=== PATIENT | female | born 1975 | race Hispanic/Latino ===

== ENCOUNTER 2016-07-19 11:31 | Emergency (ER) | payer OTHER ==
[2016-07-19 11:32] VITALS: BMI 33.3
--- NOTE | 2016-07-19 12:53 | C.PDOC ---
History Of Present Illness 41 year old female presents to the ED with complaints of swollen and painful right middle finger area. Patient describes feeling a prick to the right middle finger area while at work yesterday. Patient denies vomiting, nausea, and diarrhea. Chief Complaint (Nursing): Abnormal Skin Integrity History Per: Patient History/Exam Limitations: no limitations Onset/Duration Of Symptoms: Hrs Current Symptoms Are (Timing): Still Present Quality Of Symptoms: Painful, Swollen Past Medical History Reviewed: Historical Data, Nursing Documentation, Vital Signs Vital Signs: Last Vital Signs Temp 98.2 F 07/19/16 14:10 Pulse 72 07/19/16 14:10 Resp 16 07/19/16 14:10 BP 121/81 07/19/16 14:10 Pulse Ox 99 07/19/16 23:59 Family History: States: Unknown Family Hx - Social History Hx Tobacco Use: No Hx Alcohol Use: Yes Hx Substance Use: No - Immunization History Hx Influenza Vaccination: No Hx Pneumococcal Vaccination: No Review Of Systems Constitutional: Negative for: Fever, Chills Musculoskeletal: Positive for: Other (right middle finger pain and swelling) Physical Exam - Physical Exam Appears: Non-toxic Skin: Warm, Dry Head: Atraumatic, Normacephalic Eye(s): bilateral: Normal Inspection, PERRL, EOMI Oral Mucosa: Moist Extremity: Capillary Refill (< 2 sec), Swelling (to distal volar aspect of right third finger ), Other (right third finger positive for 0.5 cm of redness and swelling with small ? foreign body) Pulses: Left Radial: Normal, Right Radial: Normal Neurological/Psych: Oriented x3, Normal Speech, Normal Motor, Normal Sensation Gait: Steady ED Course And Treatment O2 Sat by Pulse Oximetry: 99 (on RA) Pulse Ox Interpretation: Normal - Other Rad Right 3rd finger Interpretation: No fracture, dislocation. No foreign body seen Disposition - Disposition Referrals: Shaik Burris MD [Staff Provider] - Disposition: HOME/ ROUTINE Disposition Time: 14:00 Condition: GOOD Additional Instructions: Clean the wound twice a day with soap and water. Then apply bacitracin or Neosporin and band-aids. Follow up with the medical doctor within 1-2 days. Return if worsened, Prescriptions: Cephalexin [cephalexin] 500 mg PO BID #10 cap Instructions: Soft Tissue Foreign Body (ED) Forms: Work Excuse - Clinical Impression Clinical Impression: Soft tissues foreign body - Scribe Statement The provider has reviewed the documentation as recorded by the Scribe Lacey hillman All medical record entries made by the Scribe were at my direction and personally dictated by me. I have reviewed the chart and agree that the record accurately reflects my personal performance of the history, physical exam, medical decision making, and the department course for this patient. I have also personally directed, reviewed, and agree with the discharge instructions and disposition. Procedures - Foreign Body Removal Consent Obtained: verbal consent (performed by Nazon) Time Out Performed: No Site: other (finger) Description of foreign body: other (metal object) Sedation/Analgesia: none Technique: other (metal object removed using 25-guage needle) Confirmed by:: direct visualization Complications:: None Post-procedure exam: Awake, alert Neurovascular: Normal distal pulse, Normal capillary, Distal light touch sensation intact, Distal motor function normal, No signs of compartment syndrome
[2016-07-19] MEDS ORDERED: Lidocaine 2% Inj (20ml) INFIL ONE (13:34)
[2016-07-19] MEDS ORDERED: Lidocaine 2% Inj (20ml) ONE (13:36)
--- NOTE | 2016-07-19 13:58 | C.PDOC ---
Chief Complaint (Nursing): Abnormal Skin Integrity Past Medical History Vital Signs: Last Vital Signs Temp 98.3 F 07/19/16 11:38 Pulse 13 L 07/19/16 11:38 Resp 18 07/19/16 11:38 BP 124/84 07/19/16 11:38 Pulse Ox 99 07/19/16 11:38 Family History: States: Unknown Family Hx - Social History Hx Tobacco Use: No Hx Alcohol Use: Yes Hx Substance Use: No - Immunization History Hx Influenza Vaccination: No Hx Pneumococcal Vaccination: No ED Course And Treatment O2 Sat by Pulse Oximetry: 99 Disposition - Disposition Referrals: Shaik Burris MD [Staff Provider] - Disposition: HOME/ ROUTINE Disposition Time: 13:58 Condition: GOOD Additional Instructions: Clean the wound twice a day with soap and water. Then apply bacitracin or Neosporin and band-aids. Follow up with the medical doctor within 1-2 days. Return if worsened, Prescriptions: Cephalexin [cephalexin] 500 mg PO BID #10 cap Instructions: Soft Tissue Foreign Body (ED) - Clinical Impression Clinical Impression: Soft tissues foreign body
[2016-07-19 14:17] VITALS: BP 121/81; PULSE 72; RESP 16; TEMP 98.2
--- NOTE | 2016-07-19 16:44 | RAD ---
PROCEDURE: Right middle finger radiographs. HISTORY: possible foriegn body at the DIP joint COMPARISON: None. TECHNIQUE: AP radiograph of the right hand, as well as spot oblique and lateral images of right middle finger were obtained. FINDINGS: RIGHT MIDDLE FINGER: Right middle finger normal, without fracture of focal lesion. Remainder of the right hand (as seen on the AP view) grossly unremarkable. JOINTS: Normal. SOFT TISSUES: No radiopaque foreign body identified. OTHER FINDINGS: None. IMPRESSION: Normal right middle finger radiographs.
[2016-07-19 23:56] VITALS: O2SAT 99
== END 2016-07-19 14:15 | disposition home or self-care (01) ==
LOC: C.ER 11:31
DX: M79.5 Residual foreign body in soft tissue (principal)

== ENCOUNTER 2016-07-20 13:45 | Emergency (ER) | payer OTHER ==
[2016-07-20 13:45] VITALS: BMI 33.3
[2016-07-20 13:51] VITALS: BP 144/83; PULSE 74; RESP 18; TEMP 97.4; O2SAT 100
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
== END 2016-07-20 15:34 | disposition home or self-care (01) ==
LOC: C.ER 13:45
DX: S23.3XXA Sprain of ligaments of thoracic spine, initial encounter (principal); X58.XXXA Exposure to other specified factors, initial encounter

== ENCOUNTER 2016-07-27 12:37 | Emergency (ER) | payer OTHER ==
[2016-07-27 12:38] VITALS: BMI 33.3
[2016-07-27 12:47] VITALS: BP 117/75; PULSE 107; TEMP 97.9; O2SAT 98
[2016-07-27 12:58] VITALS: RESP 20
[2016-07-27] MEDS ORDERED: Oxycodone/Acetaminophen 5/325 mg Tab PO STA (13:19)
--- NOTE | 2016-07-27 13:20 | C.PDOC ---
History Of Present Illness 41 yo female come of for evaluation of left knee pain developed for past few days. pain is localized over left knee, non-radiating and worse with knee bending. Pt admits, was seen yesterday at [facility] [place] same complaints, where imaging of Left knee performed with normal results " was told I have arthritis" . Pt sts, Ibuprofen does not relive pain and request something stronger for pain. Otherwise, pt denies known trauma or injury, fever, chills, knee swelling or skin changes over knee, denies calf pain, no risk factors for DVT. Ambulate to ED for evaluation, not in any apparent distress. Time Seen by Provider: 07/27/16 12:50 Chief Complaint (Nursing): Lower Extremity Problem/Injury History Per: Patient History/Exam Limitations: no limitations Onset/Duration Of Symptoms: Days (Few ) Current Symptoms Are (Timing): Still Present Recent travel outside of the [place]: No Past Medical History Reviewed: Historical Data, Nursing Documentation, Vital Signs Vital Signs: Last Vital Signs Temp 97.9 F 07/27/16 12:54 Pulse 107 H 07/27/16 12:54 Resp 20 07/27/16 12:54 BP 117/75 07/27/16 12:54 Pulse Ox 98 07/27/16 13:39 Family History: States: No Known Family Hx - Social History Hx Tobacco Use: Yes Hx Alcohol Use: No Hx Substance Use: No - Immunization History Hx Influenza Vaccination: No Hx Pneumococcal Vaccination: No Review Of Systems Except As Marked, All Systems Reviewed And Found Negative. Constitutional: Negative for: Fever, Chills Musculoskeletal: Positive for: Other ((+) Left Knee pain. (-) No knee swelling. No calf tenderness. ) Physical Exam - Physical Exam Appears: Well, Non-toxic, No Acute Distress Skin: Normal Color, Warm, No Rash, No Ecchymosis Extremity: Normal ROM, Tenderness (mild tenderness over left patella with mild discomfort on flexion. FAROM, no neurovascular deficits, no edema, no erythema, no warmth. No neurovascular deficits distally to tenderness.), No Calf Tenderness (Left knee), No Deformity, No Swelling Extremity: Bilateral: Atraumatic Neurological/Psych: Oriented x3, Normal Speech, Normal Motor, Normal Sensation, Normal Reflexes ED Course And Treatment O2 Sat by Pulse Oximetry: 98 Progress Note: Offered to repeat left knbee xray-pt refused. On re-eavl, pt is afebrile, hemodynamicaly stable. left knee; exam c/w left knee arthralgia, FAROM, no cellulitis, no neurovascular deficits. Royce wrap to left knee applied. pt advised. ref. to f/u with ortho for further eval and pain control. Medical Decision Making Medical Decision Making: PLAN: * Percocet PO Disposition Counseled Patient/Family Regarding: Diagnosis, Need For Followup - Disposition Referrals: [facility] [place] [Outside] Disposition: HOME/ ROUTINE Disposition Time: 13:19 Condition: STABLE Additional Instructions: RICE-REST,ICE,COMPRESSION,ELEVATION TAKE PAIN MEDICATION PRESCRIBED FOLLOW UP WITH ORTHOPEDIST IN 2-3 DAYS FOR RE-EVALUATION. RETURN IF NAY NEW CHANGES. Prescriptions: Methocarbamol [Robaxin] 500 mg PO TID #14 tab Instructions: Arthralgia (ED), Knee Pain (ED) - Clinical Impression Clinical Impression: Arthralgia of knee - PA / [employer] / Resident Statement MD/DO has reviewed & agrees with the documentation as recorded. - Scribe Statement The provider has reviewed the documentation as recorded by the Scribe Rosa Michael All medical record entries made by the Jorge were at my direction and personally dictated by me. I have reviewed the chart and agree that the record accurately reflects my personal performance of the history, physical exam, medical decision making, and the department course for this patient. I have also personally directed, reviewed, and agree with the discharge instructions and disposition.
[2016-07-27] MEDS ORDERED: Oxycodone/Acetaminophen 5/325 mg Tab ONE (13:26)
== END 2016-07-27 13:54 | disposition home or self-care (01) ==
LOC: C.ER 12:37
DX: M25.562 Pain in left knee (principal)

== ENCOUNTER 2018-05-16 17:02 | Emergency (ER) | payer OTHER, MEDICAID | END 2018-05-16 17:44 | disposition home or self-care (01) | LOC: C.ER 17:02 ==